=== PATIENT | male | born 1985 | race Caucasian/White ===

== ENCOUNTER 2018-01-27 10:14 | Outpatient (CLI) | payer OTHER ==
[2016-02-11 17:19] VITALS: BP 149/88
== END 2018-01-27 10:16 ==
LOC: CARD 10:14
PROVIDERS: ATTEND Internal Medicine Cardiovascular Disease
DX: I10 Essential (primary) hypertension (principal); R06.09 Other forms of dyspnea; E66.9 Obesity, unspecified; Z87.448 Personal history of other diseases of urinary system
CPT/HCPCS: 99213

== ENCOUNTER 2018-04-01 10:52 | Outpatient (CLI) | payer OTHER ==
[2016-02-11 17:19] VITALS: BP 149/88
--- NOTE | 2018-04-01 19:28 | Diagnostic Imaging Report ---
AMENA MCCOY [facility] [address] [facility].[address] [id number] Report Submission Date: Apr 01, 2018 11:17:13 AM CDT Patient Study Name: BRENDA MCKEON Date: Apr 01, 2018 10:53:20 AM CDT Modality Type: DX Gender: M Description: LOWER EXTREMITY : 85 Institution: [facility] Physician: AMENA MCCOY Examination: Plain film right foot History: RT FOOT, PAIN IN RT FOOT SINCE YESTERDAY, WENT FOR A 2 MILE WALK YESTERDAY AND WOKE UP WITH PAIN IN ARCH (Hx) Findings: 3 views of the right foot demonstrates normal cortical margins. No fracture or dislocation. No soft tissue swelling. Calcaneal spurs. No joint effusion. Impression: Calcaneal spurs. No acute osseous process. Electronically signed on Apr 01, 2018 11:17:13 AM CDT by: Carlos CONWAY
== END 2018-04-01 10:53 ==
LOC: LAB 10:52
PROVIDERS: ATTEND Family Medicine
DX: M79.671 Pain in right foot (principal)
CPT/HCPCS: 73630; 84550